=== PATIENT | male | born 1970 | race Caucasian/White ===

== ENCOUNTER 2021-12-14 12:09 | Emergency (ER) | payer OTHER ==
[~2021-12-14] VITALS: Ht 180.3 cm; Wt 120.5 kg
[2021-12-14 12:19] VITALS: BP 139/96; TEMP 98.3
[2021-12-14 14:54] VITALS: PULSE 92
== END 2021-12-14 14:54 | disposition home or self-care (01) ==
LOC: COL.ER 12:09
DX: U07.1 COVID-19 (principal); Z91.040 Latex allergy status